=== PATIENT | male | born 1980 | race Caucasian/White ===

== ENCOUNTER 2024-02-08 11:17 | Emergency (ER) | payer SELFPAY ==
[2024-02-08 11:21] VITALS: BP 159/106; PULSE 116; RESP 16; TEMP 36.7; O2SAT 98; BMI 29.5
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
[2024-02-08 12:13] VITALS: PULSE 116; O2SAT 99
[2024-02-08] MEDS: tetanus-dipt-pertussis 0.5 mL SDV IM (13:18)
[2024-02-08] MEDS: silver sulfadiazine cream 1% 50 gm 1 APPLIC TOPICAL (13:22)
[2024-02-08 13:38] VITALS: BP 148/113; PULSE 119; O2SAT 98
== END 2024-02-08 13:39 | disposition home or self-care (01) ==
PROVIDERS: Emergency Provider Physician Assistant; PCP Nurse Practitioner Family
DX: T20.10XA Burn of first degree of head, face, and neck, unspecified site, initial encounter (principal); T23.261A Burn of second degree of back of right hand, initial encounter; Z79.85 Long-term (current) use of injectable non-insulin antidiabetic drugs; Z79.84 Long term (current) use of oral hypoglycemic drugs; X13.1XXA Other contact with steam and other hot vapors, initial encounter; Z23 Encounter for immunization
CPT/HCPCS: 90471; 90715; 99283